=== PATIENT | female | born 1965 | race Caucasian/White ===

== ENCOUNTER → 2018-12-21 07:41 | Outpatient (CLI) | payer SELFPAY ==
--- NOTE | 2018-12-21 07:44 | MR_ITS ---
MR lumbar spine wo con, MR 3-d myelogram/MRCP HISTORY: Twisted back and pulled something in low back X 6 weeks ago. PT can't stand upright. Bilateral groin pain, RT leg pain and RT leg numbness from knee to ankle. ITS.REASON: BACK PAIN ORDERING PHYSICIAN: Tia Ventura PATIENT AGE: 53 years Comparison: None TECHNIQUE: Standard multiplanar multiecho sequences are performed without contrast. 3-D MIP and myelographic images are also rendered and reviewed FINDINGS: In the region of the right and posterior the phalanx and there are no previous exams available for comparison. The spinal cord ends at the L1-L2 level. T11-T12: Unremarkable. T12-L1: There is moderate anterior wedging of L1 with loss of height anteriorly of 50% and mild retropulsion of the posterior superior aspect of the L1 vertebral body by 3 to 4 mm slightly eccentric toward the right resultant mild right lateral recess narrowing. This is not impinging upon the cord. There is kyphosis at this level. This appears to represent a chronic compression fracture. L1-L2: Unremarkable. L2-L3: Unremarkable. L3-L4: Severe wedge compression changes are present at L4 with loss of height centrally of 70% loss of height anteriorly of at least 50% loss of height posteriorly by 40%. There is bowing of the posterior aspect of the L4 vertebral body into the canal with canal stenosis. There is associated bulging disc at L3-L4 with minimal central disc protrusion along with facet and ligamentum hypertrophy with severe bilateral lateral recess and severe bilateral foraminal narrowing. The compression changes at L4 do appear acute with increased T2 signal of the vertebral body anteriorly and posteriorly and decreased T1 and T2 signal centrally which may be due to compressed or sclerotic bone. L4-L5: Bulging disc with mild facet and ligamentum flavum hypertrophy with severe bilateral foraminal narrowing L5-S1: Mild concentric bulging disc. Facet and ligamentum flavum hypertrophy with moderate severe bilateral foraminal narrowing. There is mild acute wedging of L5 with loss of height anteriorly of approximately 25-30% without retropulsion. IMPRESSION: 1. Multiple compression changes involving L1, L4, and L5. The changes at L4 and L5 appear acute other changes at L1 may be chronic. There is severe canal stenosis at L4. 2. T12-L1: There is moderate anterior wedging of L1 with loss of height anteriorly of 50% and mild retropulsion of the posterior superior aspect of the L1 vertebral body by 3 to 4 mm slightly eccentric toward the right resultant mild right lateral recess narrowing. This is not impinging upon the cord. There is kyphosis at this level. This appears to represent a chronic compression fracture 3. L3-L4: Severe wedge compression changes are present at L4 with loss of height centrally of 70% loss of height anteriorly of at least 50% loss of height posteriorly by 40%. There is bowing of the posterior aspect of the L4 vertebral body into the canal with canal stenosis. There is associated bulging disc at L3-L4 with minimal central disc protrusion along with facet and ligamentum hypertrophy with severe bilateral lateral recess and severe bilateral foraminal narrowing. The compression changes at L4 do appear acute with increased T2 signal of the vertebral body anteriorly and posteriorly and decreased T1 and T2 signal centrally which may be due to compressed or sclerotic bone. 4. L4-L5: Bulging disc with mild facet and ligamentum flavum hypertrophy with severe bilateral foraminal narrowing 5. L5-S1: Mild concentric bulging disc. Facet and ligamentum flavum hypertrophy with moderate severe bilateral foraminal narrowing 6. No extruded herniated disc evident.
== END ==
PROVIDERS: PCP Emergency Medicine; Visit Provider Emergency Medicine
DX: M53.87 Other specified dorsopathies, lumbosacral region (principal)
CPT/HCPCS: 72148; 76376

== ENCOUNTER → 2019-01-05 12:30 | Outpatient (POV) | payer OTHER, SELFPAY ==
--- NOTE | 2019-01-05 13:53 | XR_ITS ---
EXAM: XR lumbar spine 2-3V HISTORY: Follow-up fracture ITS.REASON: L-SPINE FX ORDERING PHYSICIAN: Trino Nolan PATIENT AGE: 53 years COMPARISON: 12/21/2018 FINDINGS: There is mild lumbar curvature convex right. There is kyphosis at the thoracolumbar junction with 50% wedge compression fracture of L1. Severe wedge compression fractures are present involving L4 with mild retropulsion of the posterior aspect of L4 x 6 mm. This actually represents a burst fracture as seen on the MRI. Mild wedge compression changes also involving L1.. IMPRESSION: Compression fractures of L1 L4 and L5 with retropulsion of the posterior aspect of L4 as described above
--- NOTE | 2019-01-05 14:16 | CT_ITS ---
CT lumbar spine wo con INDICATION: ITS.REASON: L-SPINE FX ORDERING PHYSICIAN: Trino Nolan PATIENT AGE: 53 years COMPARISON: 12/21/2018 TECHNIQUE: Axial images obtained with sagittal and coronal reformats. All CT scans at the facility use one or more dose reduction, viz: automated exposure control, ma/kV adjustment per patient size (including targeted exams where dose is matched to indication, i.e. head), or iterative reconstruction technique. FINDINGS: There is reversal of the thoracic or lumbar lordosis. Chronic wedge compression changes involve the L1 vertebral body with loss of height anteriorly of 50%. There is mild retropulsion of the posterior superior aspect of the L1 vertebral body x 5 mm. The retropulsion is slightly eccentric toward the right with mild right lateral recess narrowing. L1-L2: Unremarkable. L2-L3: Unremarkable. L3-L4: Bulging disc facet and ligamentum flavum hypertrophy with bilateral lateral recess and foraminal narrowing. L4-L5: Severe compression changes are present involving the L4 vertebral body with vertebra plana. There is loss of height centrally of 90% and loss of height anteriorly of 75% with loss of height posteriorly of greater than 50%. There is retropulsion of the posterior aspect of the vertebral body by approximately 8 mm. There is canal stenosis from the retropulsion of the vertebral body with canal measuring 9 mm. There are severe bilateral lateral recess narrowing and moderate bilateral foraminal narrowing. The compression fracture involves both anterior and posterior aspect of the vertebral body indicating a burst type fracture. The fracture does not involve the pedicles or posterior elements the compression changes and retropulsion may be slightly greater than when compared to the MRI of 12/21/2018. L5-S1: Mild concentric bulging disc. There is mild wedge compression change involving the inferior endplate of L5 with loss of height centrally of 40% and and loss of height anteriorly of 30%. IMPRESSION: 1. Burst fracture involving the L4 vertebral body with vertebral plana with retropulsion of the posterior aspect of L4 x 8 mm with canal stenosis and severe bilateral lateral recess and moderate bilateral foraminal narrowing. The compression changes may be slightly greater than when compared to the MRI of 12/21/2018. 2. Mild wedge compression changes involve L5. 3. Chronic compression fracture of L1 with kyphosis.
[2019-01-05 15:55] LABS: Thyroid Stimulating Hormone 1.17 uIU/ml (0.358-3.740)
[2019-01-09 08:18] LABS: Calcium, Ionized 5.5 mg/dL (4.5-5.6); Parathyroid Hormone Intact 23 pg/mL (15-65); Prealbumin 11 mg/dL (10-36); Vitamin D 25 Hydroxy 43.3 ng/mL (30.0-100.0)
[2019-01-10 13:10] LABS: Estrogen 53 pg/mL (.)
== END ==
PROVIDERS: PCP Family Medicine; Visit Provider Neurological Surgery
DX: S32.009A Unspecified fracture of unspecified lumbar vertebra, initial encounter for closed fracture (principal)
CPT/HCPCS: 36415; 72100; 72131; 82330; 82652; 82672; 83970; 84134; 84443